=== PATIENT | male | born 1990 | race Caucasian/White ===

== ENCOUNTER 2020-06-17 13:20 | Outpatient (CLI) | payer SELFPAY ==
--- NOTE | 2020-06-17 21:41 | SLEEP CARE CONSULTATION ---
Information from patient questionnaire entered by Karis Guerrero. I have reviewed and concur with the information entered by Karis Guerrero. This document represents the service I personally performed and the decisions made by me, Reyes Lincoln MD, [facility]. History of Present Illness Service Date and Time: 06/17/2020 1320 Reason for Visit: New patient Chief Complaint: reports: Insomnia, Unrefreshed sleep, Snoring, Excessive daytime sleepiness, Observed pauses in breathing, Fatigue, Frequent awakenings at night Date of Onset: 2004 Usual bedtime: [id number] Time it takes to fall asleep: 10 minutes Snores at night: Yes Observed to quit breathing while asleep: Yes Sleeps alone due to snoring: No Number of times waking at night: 8-10 Toss, Turn, or Twitch while sleeping: Yes Recalls having dreams: Yes Usually gets out of bed at: [id number] Feels refreshed in the morning: No Morning headache: No Sleepy or fatigued during the day: Yes Ever fallen asleep while driving: No Takes day naps: No Dreams during day naps: Yes Prior sleep studies: No Additional HPI information: I had the pleasure of seeing Mr. Bullock today regarding the possibility of him having a sleep disorder. As you know, he is a 30 year old gentleman who complains of insomnia, frequent awakenings, unrefreshed sleep, loud snore, observed apneas, persistent fatigue, and excessive daytime sleepiness for 15 years. The patient tells me that he normally goes to bed around 10 pm 0030 am, and it takes him approximately 10 minutes to fall asleep. He has been told that he snores loudly and irregularly at night. He has also been observed to stop breathing in his sleep. His bed partner can still sleep in the same bed. He can recall waking up on the average of 8 - 10 times during the night. Most of the time he wakes up because of his own snoring, choking, and having to gasp for air. There is a lot of tossing and turning in his sleep. No somniloquy (sleep talking) or somnambulism (sleep walking). Generally he can recall having francisco ms. In the morning he usually gets up out of the bed around 10 a.m. noon, not feeling refreshed nor rested. He usually does not have a morning headache. During the day he complains of feeling sleepy and fatigued. His score on [place] Sleepiness Scale is 3 out of 24. He has never fallen asleep while driving nor has had any accident due to sleepiness. He usually does not take naps during the day. Upon falling asleep during the day he reports having dreams. Subjective Initial [place] Sleepiness Scale score: 3 (in 2019) Past Medical History Past Medical History: reports: Anxiety, Depression, Other (tinnitus/hearing loss) Social History The patient's occupation is a NON. Patient is Single and lives in . Have you smoked in the past 12 months: No Alcohol use: No Caffeine use: No Family History Family history of sleep disordered breathing: Yes Family Hx Sleep Apnea: Mother: Sleep apnea - Treated Allergies and Home Medications Drug allergies reviewed: Yes Home medication list reviewed: Yes (Remeron) Review of Systems Cardiovascular: reports: high blood pressure Respiratory: denies: shortness of breath, wheeze, sputum production, chronic cough, other Gastrointestinal: denies: heartburn, difficulty swallowing, nausea, vomitting, diarrhea, abdominal pain, other Urinary: denies: incontinence, frequency, urgency, impotence, other Neurological: denies: headaches, seizure, head trauma, disorientation, speech dysfunction, gait or balance problems, fainting or unconsciousness, other Psychiatric: reports: anxiety, depression Ear/Nose/Throat: reports: wisdom teeth removed Endocrine: denies: thyroid disease, history of goiter, sluggishness, too hot or cold, excessive thirst, increased appetite, increased urination, unexplained weakness, other Musculoskeletal: reports: neck pain, back pain Immunologic: reports: sneezing Physical Exam Vital signs obtained and entered by: To minimize the risk of COVID-19 exposure, detailed exam was not performed. Impression and Plan IMPRESSION: 1. Obstructive Sleep Apnea-Hypopnea Syndrome, as suggested by history of loud and irregular snoring, observed cessation of breath while asleep, frequent awakenings during the night, unrefreshed sleep, and daytime hypersomnolence. Narrow oropharynx and obesity are common predisposing factors for obstructive sleep apnea-hypopnea syndrome. Pathophysiology of sleep-disordered breathing was discussed. I recommend proceeding to polysomnography to confirm the diagnosis and to assess severity. However, the patient is self-pay and would like the least costly path. I, therefore, recommend going straight to the CPAP therapy because his risk for the obstructive sleep apnea-hypopnea is quite high. I gave him a few online sites to compare merrill. The autoCPAP will be set empirically at 5 15 cmH2O. I also showed him different mask styles. Plan: 1. Prescription made for an autoCPAP, heated humidifier, and related supplies. 2. Avoid long distance driving or when feeling sleepy. 3. Avoid alcohol, sedative and muscle relaxant around bedtime. 4. Attempt to lose weight. 5. Return after a month of using the CPAP. Visit Type: In Office Time Spent with Patient (minutes): 15 Provider Statement: I spent 100% of the Face to Face Visit with the patient with greater than 50% spent counseling the patient and coordination of care.
== END 2020-06-17 13:21 | disposition home or self-care (01) ==
LOC: SC 13:20
PROVIDERS: ATTEND Internal Medicine Pulmonary Disease
DX: G47.10 Hypersomnia, unspecified (principal); R06.81 Apnea, not elsewhere classified; R06.83 Snoring; G47.8 Other sleep disorders
CPT/HCPCS: 99203; 99212